=== PATIENT | female | born 1955 | race Caucasian/White ===

== ENCOUNTER → 2019-05-29 | Outpatient (CLI) | payer OTHER ==
--- NOTE | 2019-05-29 16:54 | Diagnostic Imaging Report ---
EXAMINATION: Radiographs of the sacrum and coccyx, 3 views. COMPARISON: None. HISTORY: 63-year-old female, fall. Coccygeal pain. FINDINGS: The sacroiliac joints are normally aligned as is the pubic symphysis. There are no sacroiliac degenerative changes. Radiographs are not sensitive for evaluation of sacral or coccygeal fractures. There is no clear and definite sacral fracture identified. The frontal view evaluation is limited relating to overlying bowel gas material. IMPRESSION: 1. Normally aligned pubic symphysis and sacroiliac joints. 2. No identified sacral or coccygeal fracture on limited radiographic assessment. Dictated by: Dictated on workstation # [id number]
== END ==
LOC: RAD FS 16:28
PROVIDERS: ATTEND Chiropractor
DX: M53.3 Sacrococcygeal disorders, not elsewhere classified (principal)
CPT/HCPCS: 72220